=== PATIENT | male | born 1960 | race Caucasian/White ===

== ENCOUNTER → 2021-02-22 | Outpatient (CLI) | payer OTHER ==
--- NOTE | 2021-02-22 12:02 | 2DMMODE ---
[facility] [place] [address] 2 D/M-MODE ECHOCARDIOGRAM Name: MELLYMANSOOR MEJIA Room #: REG [facility] M.R.#: [id number] Admission: 02/22/21 Attend Phys: Brooks Rajput MD Discharge: Date of : 62 Report #: [id number] THIS REPORT FOR: cc: Raymon Espinoza MD, Patrick MD Santiago, Patrick MD [facility] ~ APPROVED REPORT Study performed: 02/22/2021 10:32:06 EXAM: Comprehensive 2D, Doppler, and color-flow Echocardiogram Patient Location: Out-Patient Status: routine BSA: 2.07 HR: 82 bpm BP: 120/76 mmHg Rhythm: NSR Other Information Study Quality: Good Indications CAD Hx: Takotsubo. 2D Dimensions RVDd: 31.00 mm IVSd: 11.00 (7-11mm) LVOT Diam: 21.00 (18-24mm) LVDd: 52.00 mm PWd: 11.00 (7-11mm) Ascending Ao: 33.64 (22-36mm) LVDs: 35.00 (25-40mm) Left Atrium: 42.64 (27-40mm) Aortic Root: 36.53 mm Volumes Left Atrial Volume (Systole) Single Plane 4CH: 49.39 mL Single Plane 2CH: 47.65 mL LA ESV Index: 25.00 mL/m2 Aortic Valve AoV Peak Pro.: 1.36 m/s AO Peak Gr.: 7.43 mmHg LVOT Max P.96 mmHg LVOT Max V: 1.00 m/s [facility] [address] [place] [address] 2 D/M-MODE ECHOCARDIOGRAM Name: MANSOOR PICKARD Room #: REG CL [facility].#: [id number] Admission: 02/22/21 Attend Phys: Brooks Rajput MD Discharge: Date of : 62 Report #: [id number] TINA Vmax: 2.55 cm2 Mitral Valve E/A Ratio: 0.7 MV Decel. Time: 346.68 ms MV E Max Pro.: 0.39 m/s MV A Pro.: 0.55 m/s MV PHT: 100.54 ms IVRT: 69.20 ms Pulmonary Valve PV Peak Pro.: 1.42 m/s PV Peak Gr.: 8.12 mmHg Pulmonary Vein P Vein S: 0.68 m/s P Vein D: 0.33 m/s P Vein S/D Ratio: 2.06 Tricuspid Valve TR Peak Pro.: 2.70 m/s RAP Estimate: 5.00 mmHg TR Peak Gr.: 29.00 mmHg PA Pressure: 34.00 mmHg Left Ventricle The left ventricle is normal size. There is normal LV segmental wall motion. There is normal left ventricular wall thickness. Left ventricular systolic function is normal. LVEF is 55-60%. Mild diastolic dysfunction is present (impaired relaxation pattern). Right Ventricle The right ventricle is normal size. The right ventricular systolic function is normal. Atria The left atrium size is normal. The atrial septum is aneurysmal. The right atrium size is normal. Aortic Valve The aortic valve is normal in structure. No aortic regurgitation is present. There is no aortic valvular stenosis. Mitral Valve The mitral valve is normal in structure. There is no mitral valve regurgitation noted. No evidence of mitral valve stenosis. [facility] [place] [address] 2 D/M-MODE ECHOCARDIOGRAM Name: MANSOOR PICKARD Room #: REG M.Ashlee.#: [id number] Admission: 02/22/21 Attend Phys: Brooks Rajput MD Discharge: Date of : 62 Report #: [id number] Tricuspid Valve The tricuspid valve is normal in structure. Mild tricuspid regurgitation. Estimated PAP is 35mmHg. Pulmonic Valve The pulmonary valve is normal in structure. Trace pulmonic regurgitation. Great Vessels The aortic root is normal in size. The ascending aorta is normal in size. IVC is normal in size and collapses >50% with inspiration. Pericardium There is no pericardial effusion. <Conclusion> Normal left ventricle size/wall thickness Ejection fraction 60% Grade 1 diastolic dysfunction Normal right ventricular size/function Normal atrial size Color-flow Doppler study was performed of the aortic/mitral/tricuspid/pulmonary valve None normal aortic/mitral valve structure and function Mild tricuspid valve insufficiency Pulmonary systolic pressure estimated 35 mmHg Normal aortic root size No pericardial effusion <ELECTRONICALLY SIGNED> By: Raymon Heath MD, FACC 02/22/211201 01 01 Raymon Heath MD, FAC /INF
== END ==
LOC: CV 11:16
PROVIDERS: ATTEND Orthopaedic Surgery
DX: I07.1 Rheumatic tricuspid insufficiency (principal); I25.10 Atherosclerotic heart disease of native coronary artery without angina pectoris